=== PATIENT | male | born 1985 | race Hispanic/Latino ===

== ENCOUNTER 2024-03-30 00:18 | Observation (INO) | payer BC ==
[~2024-03-30] VITALS: Ht 185.4 cm; Wt 152.3 kg
[2024-03-30] VITALS (7 sets, daily range): BP systolic 152–182; BP diastolic 96–103; PULSE 82–105; RESP 20; TEMP 98–98.8; O2SAT 97–98
[2024-03-30 01:01] LABS: BASOPHILS # (AUTO) 0.08 K/uL (0.00-0.20); BASOPHILS % (AUTO) 0.5 % (0.0-5.0); EOSINOPHILS # (AUTO) 0.03 K/uL (0.00-0.70); EOSINOPHILS % (AUTO) 0.2 % (0.0-8.0); HEMATOCRIT 45.7 % (42-54); IMMATURE GRANULOCYTE ABSOLUTE 0.05 K/uL (0-1); LYMPHOCYTES % (AUTO) 6.8 % (21.0-51.0); MEAN CORPUSCULAR VOLUME 82.9 fL (79-99); MONOCYTES # (AUTO) 0.3 K/uL (0.1-1.0); MONOCYTES % (AUTO) 2.2 % (3.0-13.0); NEUTROPHILS # (AUTO) 13.7 K/uL (1.8-7.7); PLATELET COUNT (AUTO) 326 K/uL (130-400); RED BLOOD CELL COUNT(AUTO) 5.51 MIL/uL (4.50-6.20); RED CELL DISTRIBUTION WIDTH 11.8 % (11.0-15.5); WHITE BLOOD COUNT (AUTO) 15.2 K/uL (4.8-10.8)
[2024-03-30] MEDS: morPHINE 2 MG SYG IVP ONE (01:06)
[2024-03-30] MEDS: FAMOTIDINE 20MG VIAL IV ONE (01:06)
[2024-03-30] MEDS: ONDANSETRON 4MG INJ IVP ONE (01:06)
[2024-03-30] MEDS: hydrALAZine 20MG/ML VIAL IV ONE (01:07)
[2024-03-30 01:18] LABS: B-TYPE NATRIURETIC PEPTIDE < 5 pg/mL (0-100)
[2024-03-30 01:21] LABS: CREATININE 1.1 mg/dL (0.5-1.3); POTASSIUM 3.9 mmol/L (3.5-5.1)
[2024-03-30 01:26] LABS: ALBUMIN 3.6 g/dL (3.5-5.0); BILIRUBIN,DIRECT 0.1 mg/dL (0.0-0.3); BILIRUBIN,TOTAL 0.4 mg/dL (0.2-1.0); TOTAL PROTEIN, SERUM 7.4 g/dL (6.0-8.3)
[2024-03-30] MEDS: ketOROlac 15MG/ML VIAL (15MG/ML) IV ONE (02:05)
[2024-03-30] MEDS: MAG/ALUM/SIMETH 30 ML UDCUP PO ONE (02:05)
[2024-03-30] MEDS: LIDOCAINE HCL 2% VISCOUS 15 ML UDCUP PO ONE (02:05)
[2024-03-30 02:31] LABS: APPEARANCE,URINE CLEAR (CLEAR); COLOR,URINE YELLOW (YELLOW); PH,URINE 7.5 (5.0-8.0)
[2024-03-30 02:32] LABS: ADD UA MICROSCOPIC NO; BILIRUBIN,URINE NEGATIVE (NEGATIVE); GLUCOSE, URINE (UA) TRACE mg/dL (NEGATIVE); KETONES,URINE NEGATIVE (NEGATIVE); LEUKOCYTE ESTERASE ,URINE NEGATIVE Leu/uL (NEGATIVE); NITRATE,URINE NEGATIVE (NEGATIVE); OCCULT BLOOD,URINE NEGATIVE (NEGATIVE); PROTEIN,URINE NEGATIVE (NEGATIVE); UROBILINOGEN,URINE 0.2 mg/dL (0.2-1.0)
[2024-03-30 03:08] LABS: AMPHET/METH SCREEN,URINE NEGATIVE (NEGATIVE); BARBITURATE SCREEN, URINE NEGATIVE (NEGATIVE); BENZODIAZEPINES SCREEN,URINE NEGATIVE (NEGATIVE); CANNABINOID SCREEN,URINE NEGATIVE (NEGATIVE); COCAINE SCREEN,URINE NEGATIVE (NEGATIVE); OPIATE SCREEN,URINE NEGATIVE (NEGATIVE); PHENCYCLIDINE SCREEN,URINE NEGATIVE (NEGATIVE)
[2024-03-30] MEDS: NITROGLYCERIN 1GM OINT 1 INCH/1GM TD ONE (03:21)
[2024-03-30] MEDS ORDERED: IOHEXOL-350 75 ML VIAL IV ONE (03:36)
[2024-03-30] MEDS ORDERED: ONDANSETRON 4MG INJ IV PRN (04:00)
[2024-03-30] MEDS ORDERED: NITROGLYCERIN 0.4 MG SL TAB SL PRN (04:00)
[2024-03-30] MEDS: LAbetaLOL 20MG SYG IV ONE (04:20)
[2024-03-30] MEDS: 0.9%NACL 1000ML 1,000 ML IV SCH (04:20)
[2024-03-30] MEDS: levoFLOXacin 500 MG/D5W 100 ML 100 ML IV SCH (04:45)
[2024-03-30] MEDS ORDERED: AMLO-258 PO (05:23)
[2024-03-30] MEDS: acetaMINOPHEN 500 MG TABLET PO ONE (08:36)
[2024-03-30] MEDS ORDERED: ENOXAPARIN SODIUM 30 MG/0.3 ML SQ SCH (09:00)
[2024-03-30] MEDS: FAMOTIDINE 20MG VIAL IV SCH (09:42)
[2024-03-30] MEDS: ASPIRIN 81 MG EC TAB PO SCH (09:42)
[2024-03-30] MEDS: hydrALAZine 20MG/ML VIAL IV PRN (20:04)
[2024-03-30] MEDS: LAbetaLOL 20MG SYG IV PRN (23:41)
[2024-03-30] MEDS: morPHINE 2 MG SYG IV PRN (23:42)
[2024-03-31] VITALS (10 sets, daily range): BP systolic 136–177; BP diastolic 74–104; PULSE 92–107; RESP 18–20; TEMP 98.4–99; O2SAT 97
[2024-03-31 04:38] LABS: BASOPHILS # (AUTO) 0.05 K/uL (0.00-0.20); BASOPHILS % (AUTO) 0.3 % (0.0-5.0); EOSINOPHILS # (AUTO) 0.04 K/uL (0.00-0.70); EOSINOPHILS % (AUTO) 0.2 % (0.0-8.0); HEMATOCRIT 42.6 % (42-54); IMMATURE GRANULOCYTE ABSOLUTE 0.08 K/uL (0-1); LYMPHOCYTES # (AUTO) 2.1 K/uL (1.0-4.8); LYMPHOCYTES % (AUTO) 12.4 % (21.0-51.0); MEAN CORPUSCULAR HEMOGLOBIN 28.3 pg (27.0-33.0); MEAN CORPUSCULAR HGB CONC 33.6 g/dL (32.0-36.0); MEAN CORPUSCULAR VOLUME 84.2 fL (79-99); MONOCYTES # (AUTO) 1.6 K/uL (0.1-1.0); MONOCYTES % (AUTO) 9.2 % (3.0-13.0); NEUTROPHILS # (AUTO) 13.1 K/uL (1.8-7.7); NEUTROPHILS % (AUTO) 77.4 % (40.0-77.0); PLATELET COUNT (AUTO) 312 K/uL (130-400); RED BLOOD CELL COUNT(AUTO) 5.06 MIL/uL (4.50-6.20); RED CELL DISTRIBUTION WIDTH 12.1 % (11.0-15.5); WHITE BLOOD COUNT (AUTO) 16.9 K/uL (4.8-10.8)
[2024-03-31 04:43] LABS: HEMOGLOBIN A1C 5.3 % (4.0-6.0)
[2024-03-31 04:50] LABS: ALBUMIN 3.1 g/dL (3.5-5.0); POTASSIUM 3.7 mmol/L (3.5-5.1)
[2024-03-31] MEDS: amLODIPine 5 MG TAB PO SCH (09:10)
[2024-03-31] MEDS: LoSARTan 25 MG TABLET PO SCH (20:33)
[2024-04-01 03:49] LABS: HEMATOCRIT 43.6 % (42-54); MEAN CORPUSCULAR HEMOGLOBIN 28.9 pg (27.0-33.0); MEAN CORPUSCULAR HGB CONC 33.7 g/dL (32.0-36.0); MEAN CORPUSCULAR VOLUME 85.8 fL (79-99); RED BLOOD CELL COUNT(AUTO) 5.08 MIL/uL (4.50-6.20); RED CELL DISTRIBUTION WIDTH 11.9 % (11.0-15.5); WHITE BLOOD COUNT (AUTO) 15.6 K/uL (4.8-10.8)
[2024-04-01 04:00] VITALS: BP 153/90; PULSE 90; RESP 20; TEMP 98
[2024-04-01 04:19] LABS: ALBUMIN 2.8 g/dL (3.5-5.0); BILIRUBIN,TOTAL 0.9 mg/dL (0.2-1.0); POTASSIUM 4.3 mmol/L (3.5-5.1); TOTAL PROTEIN, SERUM 7.1 g/dL (6.0-8.3)
[2024-04-01 07:21] VITALS: O2SAT 97
[2024-04-01 08:44] VITALS: BP 133/88; PULSE 75; RESP 16; TEMP 98.2
[2024-04-01 12:03] VITALS: BP 125/80; PULSE 88; RESP 16; TEMP 98.7
[2024-04-01] MEDS ORDERED: LOSA-417 PO (15:03)
[2024-04-01] MEDS ORDERED: AEC81 PO (15:03)
[2024-04-01 16:00] VITALS: BP 149/90; PULSE 90; RESP 16; TEMP 98.6
== END 2024-04-01 16:22 | disposition home or self-care (01) ==
LOC: EDH 00:18 → INTOOBSV 04:00 → EDHIP 04:00 → 2AH 09:55
PROVIDERS: ADMIT Hospitalist; ATTEND Hospitalist
DX: K81.0 Acute cholecystitis (principal); I16.0 Hypertensive urgency; E66.01 Morbid (severe) obesity due to excess calories; D72.829 Elevated white blood cell count, unspecified; R10.13 Epigastric pain; R07.89 Other chest pain; K82.8 Other specified diseases of gallbladder; I10 Essential (primary) hypertension; R11.2 Nausea with vomiting, unspecified; F17.210 Nicotine dependence, cigarettes, uncomplicated; Z91.148 Patient's other noncompliance with medication regimen for other reason; Z86.2 Personal history of diseases of the blood and blood-forming organs and certain disorders involving the immune mechanism; Z79.899 Other long term (current) drug therapy; Z79.82 Long term (current) use of aspirin; Z68.44 Body mass index [BMI] 60.0-69.9, adult
CPT/HCPCS: 96376 ×3; 96361; 96365; 96375; 99285; 80076; 84484 ×5; 80048; 83880; 80305; 83690; 85025 ×2; 87040; 83605 ×2; 81003; 36415 ×3; 71045; 74177; 93306; 93005 ×3; 84145; 96366 ×2; 83036; 80061; 80053 ×2; 76705; 85027; J3490 ×6; J1956 ×3; J2270 ×2; J7030; J0360 ×3; J2405; J1885; Q9967; G0378 ×24

== ENCOUNTER 2024-06-26 21:01 | Emergency (ER) | payer BC ==
[~2024-06-26] VITALS: Ht 185.4 cm; Wt 160.6 kg
[~2024-06-26 21:01] MED LIST: AEC81 PO; AMLO-258 PO; LOSA-417 PO
--- NOTE | 2024-06-26 21:19 | ERN ---
ED Note History of Present Illness Stated Complaint: COUGH, SHORTNESS OF BREATH, HEADACHE Chief Complaint: Cough Time Seen by MD: 21:06 Dictation: PATIENT IS A 39-YEAR-OLD MALE COMING IN [facility] WITH COMPLAINTS OF A NONPRODUCTIVE, PERSISTENT COUGH HE HAS HAD FOR THREE DAYS. NO FEVER NO CHILLS NO NAUSEA VOMITING NO LOSS OF TASTE OR SMELL. STATES HE HAD A TELE HEALTH VISIT WITH THE DOCTOR TWO DAYS AGO WHO ADVISED HIM TO TAKE TESSALON PERLES AND [id number] COUGH REMEDIES. ADDITIONALLY HIS BLOOD PRESSURE IS 194/125 IN TRIAGE AND HE TAKES LOSARTAN HE THINKS THE DOSES 10 MG DAILY FROM [facility] HIS PRIMARY CARE DOCTOR. NO CHEST PAIN NO BACK PAIN NO SOB. Allergies: Coded Allergies: No Known Allergies (Unverified Allergy, Unknown, 03/30/24) Home Meds Active Scripts Aspirin (ASPIRIN 81 MG ECTAB) 81 Mg Ectab, 81 MG PO DAILY for 30 Days, #30 TAB.EC Prov:ZAY ÁLVAREZ MD 04/01/24 Losartan Potassium (Cozaar) 25 Mg Tablet, 12.5 MG PO HS for 45 Days, #45 TAB Prov:ZAY ÁLVAREZ MD 04/01/24 Reported Medications Amlodipine Besylate (Amlodipine Besylate) 10 Mg Tablet, 10 MG PO DAILY for 30 Days, #30 TAB 0 Refills 03/30/24 Past Medical History Past Medical History: Hypertension Surgical History: None RN Note Reviewed/Agreed w/PFSH: Yes Review of System Dictation CONSTITUTIONAL: NEGATIVE EXCEPT FOR HPI HEAD/FACE: NEGATIVE EXCEPT FOR HPI EENT: NEGATIVE EXCEPT FOR HPI RESPIRATORY: NEGATIVE EXCEPT FOR HPI COUGH GASTROINTESTINAL/ABDOMINAL: NEGATIVE EXCEPT FOR HPI GENITOURINARY: NEGATIVE EXCEPT FOR HPI MUSCULOSKELETAL: NEGATIVE EXCEPT FOR HPI INTEGUMENTARY: NEGATIVE EXCEPT FOR HPI NEUROLOGICAL/PSYCH: NEGATIVE EXCEPT FOR HPI HEMATOLOGIC/LYMPHATIC: NEGATIVE EXCEPT FOR HPI ALL SYSTEMS NEGATIVE, EXCEPT NOTED ABOVE. 13 POINT REVIEW OF SYSTEMS ASSESSED AND ALL NEGATIVE EXCEPT FOR ABOVE. Initial Vital Sign VS Vital Signs Date Time Temp Pulse Resp B/P (MAP) Pulse Ox O2 Delivery O2 Flow Rate FiO2 06/26/24 21:04 98.8 105 20 194/125 97 Room Air 0 06/26/24 21:24 21 Physical Exam Dictation VITAL SIGNS REVIEWED GENERAL APPEARANCE: ALERT, ORIENTED X 3, MODERATE ACUTE DISTRESS, WELL DEVELOPED, NOURISHED. MORBIDLY OBESE HEAD AND FACE: NON-TRAUMATIC. EYES: PERRL, PINK CONJUNCTIVAS, EYELID NO TRAUMA, ANTERIOR CHAMBER WITH ARCUS SE NILIS. EARS: PINNAS INTACT AND NO SIGNS OF TRAUMA OR ERYTHEMA EAR CANALS CLEAR AND NO DISCHARGE TM NO ERYTHEMA NOSE: NO DISCHARGE, NO BLEEDING. OROPHARYNX: MOUTH NORMAL, TONGUE PINK, PHARYNX CLEAR,NO ERYTHEMA, TONSILS NO EXUDATES, NO ABSCESSES NOTED, MUCOUS MEMBRANE MOIST NECK: SUPPLE, NON-TENDER, NO THYROMEGALY, NO MASSES, NO JVD, NO BRUITS BREAST:DEFERRED CHEST:NO TENDERNESS, NO CREPITUS, NO PARADOXICAL MOVEMENT, NO RETRACTIONS LUNGS:CLEAR, WELL-VENTILATED, SYMMETRIC, NO RALES, NO WHEEZING, NO RHONCHI, NO STRIDOR, GOOD BREATH SOUNDS BILATERALLY NO TACHYPNEA HEART: REGULAR RATE, REGULAR RHYTHM, NO MURMUR, NO GALLOPS VASCULAR: NO PERIPHERAL EDEMA, ABDOMEN: SOFT, POSITIVE BOWEL SOUNDS, NONDISTENDED, NO GUARDING, NONTENDER, NO REBOUND, NO MASSES NO HEPATOMEGALY, NO SPLENOMEGALY, NO MEYER'S SIGN, NO HERNIAS. RECTAL: DEFERRED GENITAL: DEFERRED NEUROLOGICAL: NORMAL SPEECH, MOTOR FUNCTION INTACT, SENSORY FUNCTION INTACT MUSCULOSKELETAL: NECK NONTENDER, FULL RANGE OF MOTION, BACK NONTENDER, FULL RANGE OF MOTION, EXTREMITIES: NONTENDER, FULL RANGE OF MOTION SKIN: COLOR PINK, DRY, NO TURGOR, NO RASH, NO LACERATIONS, NO ABRASIONS, NO CONTUSIONS. LYMPHATIC: DEFERRED Results (Laboratory/Radiology) Laboratory/Radiology Laboratory Tests Test 06/26/24 21:15 Influenza Type A Antigen Negative For Type A Influenza Type B Antigen Negative For Type B SARS-CoV-2, RNA, NAAT NEGATIVE SARS CoV-2 Group A Streptococcus Rapid negative (NEGATIVE) Labs Reviewed?: Yes ED Course ED Course Orders Procedure Category Date Status Time Covid19 (Sars Antigen LAB 06/26/24 Logged Rapid) 21:09 Chest 1vw RAD 06/26/24 Taken 21:09 Methylprednisolone PHA 06/26/24 Complete Succ 125mg (Solu-Medr 21:30 Saline Lock Iv CPOE 06/26/24 Transmitted 21:09 Albuterol 0.083% PHA 06/26/24 Complete 2.5mg/3ml (Proventil 21:30 Budesonide 0.5 Mg/2 PHA 06/26/24 Complete Ml Inh (Pulmicort 0. 21:09 Clonidine Hcl 0.2 Mg PHA 06/26/24 Complete Tablet (Catapres 0. 21:09 Influenza Type A & B, LAB 06/26/24 Complete Rapid 21:12 Covid Rna Naat LAB 06/26/24 Complete 21:12 Rapid (Group A Strep) LAB 06/26/24 Complete 21:12 Azithromycin PHA 06/26/24 Complete (Zithromax) 21:49 Current Medications Medications (Trade) Dose Ordered Sig/Kanika Route PRN Reason Start Time Stop Time Status Last Admin Dose Admin Albuterol Sulfate (Proventil 0.083% 2.5mg/3ml) 5 mg ONCE ONCE IH 06/26/24 21:30 06/26/24 21:31 DC 06/26/24 21:51 Azithromycin (Zithromax) 500 mg ONCE STAT PO 06/26/24 21:49 06/26/24 21:50 DC 06/26/24 21:57 Budesonide (Pulmicort 0.5 Mg/2ml) 1 mg ONCE STAT IH 06/26/24 21:09 06/26/24 21:14 DC Clonidine HCl (CATApres 0.2 MG TAB) 0.2 mg ONCE STAT PO 06/26/24 21:09 06/26/24 21:14 DC 06/26/24 21:31 Methylprednisolone Sodium Succinate (Solu-medROL 125MG) 125 mg ONCE ONCE IVP 06/26/24 21:30 06/26/24 21:31 DC 06/26/24 21:58 Vital Signs Date Time Temp Pulse Resp B/P (MAP) Pulse Ox O2 Delivery O2 Flow Rate FiO2 06/26/24 21:31 108 221/136 06/26/24 21:24 98.8 113 24 221/136 100 Room Air* 0 21 06/26/24 21:04 98.8 105 20 194/125 97 Room Air 0 Two thousand two hundred, cough is improving after treatment with albuterol and budesonide. Also blood pressure now 158/78. Patient states he is feeling better. Discharged home to continue his losartan we will be given azithromycin, budesonide and Medrol Dosepak. Medical Decision Making MDM Medical decision-making based on swabs for flu COVID and strep, chest x-ray. In addition blood pressure was treated with clonidine 0.2 mg p.o., patient had forgotten to take his losartan today. Blood pressure [id number] systolic Cough is under control Patient will be given azithromycin 500 mg for bacterial bronchitis DX & DISP Disposition: Discharge Departure Impression: Primary Impression: Acute bacterial bronchitis Additional Impressions: Cough, Accelerated hypertension Condition: Stable Scripts Budesonide (Pulmicort Flexhaler) 90 Mcg Aer.pow.ba 90 MCG IH BID for 7 Days, #1 UNIT Three puffs p.o. b.i.d. for seven days Prov: MYRIAM ANDERSON NP 06/26/24 Azithromycin (Azithromycin) 500 Mg Tablet 1 TAB PO DAILY for 5 Days, #5 TAB 0 Refills Prov: MYRIAM ANDERSON NP 06/26/24 Methylprednisolone (Medrol) 4 Mg Tab.ds.pk 1 TAB PO AD for 6 Days, #21 TAB 0 Refills 6 on day 1 then reduce by one tablet daily until gone Prov: MYRIAM ANDERSON NP 06/26/24 Additional Instructions: Follow-up with primary care provider in 1 to 2 days. Take medications as directed here in the emergency room. Okay to continue home medications unless otherwise discussed during your visit in the emergency room today. Return to your nearest emergency room if symptoms worsen or if there is no improvement. Call 911 if you need immediate assistance. Take Tylenol or Motrin [id number] as needed and if no contraindications are present. Increase oral hydration. A wound culture or urine culture was ordered here in the emergency room department please follow-up with primary care provider and advise them to get repeat ports from our facility. If you had any Chris wrap/splints that were applied here, please do not remove them until you see your primary care or specialty. Use your albuterol inhaler every4 hours while awake for the next three days. Use budesonide inhaler twice a day for seven days as directed. Take antibiotics as directed until gone. See your primary care doctor on Saturday without fail Also, continue to take your high blood pressure medications as directed from your doctor. Referrals: BRIDGTE CASTRO (PCP) Time of Disposition: 22:04 I have reviewed the case, and I agree with, Diagnosis and Plan MYRIAM ANDERSON NP Jun 26, 2024 21:19
[2024-06-26 21:24] VITALS: TEMP 98.7
[2024-06-26] MEDS: cloNIDine HCL 0.2 MG TABLET PO STA (21:31)
[2024-06-26 21:49] LABS: RAPID GROUP A STREP negative (NEGATIVE)
[2024-06-26 21:51] VITALS: PULSE 103; RESP 20
[2024-06-26] MEDS: ALBUTEROL 0.083% 2.5 MG/3 ML INH IH ONE (21:51)
[2024-06-26 21:57] LABS: INFLUENZA TYPE A Negative For Type A (NEGATIVE); INFLUENZA TYPE B Negative For Type B (NEGATIVE)
[2024-06-26] MEDS: AZITHROMYCIN 250 MG TABLET PO STA (21:57)
[2024-06-26] MEDS: Solu-medROL 125MG VIAL IVP ONE (21:58)
[2024-06-26 21:59] LABS: SARS-CoV-2, RNA, NAAT NEGATIVE SARS CoV-2 (NEGATIVE)
[2024-06-26] MEDS ORDERED: AZIT500T4 PO (22:05)
[2024-06-26] MEDS ORDERED: METH4TAB3 PO (22:05)
[2024-06-26] MEDS ORDERED: BUDE90AE3 IH (22:05)
--- NOTE | 2024-06-26 22:05 | HMCIMG ---
CHEST 1VW CLINICAL HISTORY: PERSISTENT COUGH FOR THREE DAYS COMPARISON: 03/30/2024 TECHNIQUE: Single view of the chest was obtained. FINDINGS: Lungs are clear. The cardiac size and mediastinum are unremarkable. The bony structures are within normal limits. IMPRESSION: No acute cardiopulmonary process identified.
[2024-06-26 22:07] VITALS: PULSE 106; RESP 20
[2024-06-26] MEDS: BUDESONIDE 0.5 MG/2 ML INH IH STA (22:07)
[2024-06-26 23:07] VITALS: BP 152/77; RESP 18; O2SAT 98
== END 2024-06-26 23:08 | disposition home or self-care (01) ==
LOC: EDH 21:01
DX: J20.8 Acute bronchitis due to other specified organisms (principal); B96.89 Other specified bacterial agents as the cause of diseases classified elsewhere; I10 Essential (primary) hypertension; Z20.822 Contact with and (suspected) exposure to COVID-19; Z79.51 Long term (current) use of inhaled steroids; Z79.82 Long term (current) use of aspirin
CPT/HCPCS: 99284; 87880; 87804 ×2; 87635; 71045; 96374; 94640; J2919